=== PATIENT | female | born 1990 | race Caucasian/White ===

== ENCOUNTER 2019-07-01 03:33 | Emergency (ER) | payer MEDICAID ==
[~2019-07-01] VITALS: Ht 162.6 cm; Wt 75.9 kg
--- NOTE | 2019-07-01 04:10 | NUR ---
ASSUMED CARE OF PT. PT PLACED ON ANTENNA INSTALLER. FRIEND AT BEDSIDE. RESPIRATIONS EVEN AND UNLABORED. CURRENTL ON 4L OXYGEN VIA SM.
--- NOTE | 2019-07-01 04:56 | NUR ---
NO CHANGES IN ASSESSMENT NOTED AT THIS TIME. PT WILL MOAN TO PHYSICAL STIMULI ONLY. FRIEND REMAINS AT BEDSIDE. RESPIRATIONS REMAIN EVEN AND UNLABORED.
--- NOTE | 2019-07-01 06:04 | NUR ---
NO CHANGES IN ASSESSMENT NOTED AT THIS TIME. FRIEND REMAINS AT BEDSIDE.
--- NOTE | 2019-07-01 06:31 | NUR ---
PT DID REPOSITION SELF ON GURNEY. PT WILL NOT RESPOND TO VOICE, WILL MOAN W/ PHYSICAL STIMULATION. FRIEND AT BEDSIDE DID STATE PT HAS BEEN MAKING MORE MOVEMENTS ON OWN. RESPIRATIONS REMAIN EVEN AND UNLABORED. WILL CONTINUE TO MONITOR.
--- NOTE | 2019-07-01 06:33 | NUR ---
UNABLE TO COMPLETE MED REC AT THIS TIME PT DOES NOT RESPOND TO RN QUESTIONS.
--- NOTE | 2019-07-01 06:54 | NUR ---
BEDSIDE REPORT TO ARBEN CASTILLO.
--- NOTE | 2019-07-01 06:55 | NUR ---
patient asleep in bed, friend at bedside. friend reports doing shots at "faces" and doing shots at other bars then patient reportedly became unable to walk/talk/function. ems was called. patient is from [facility]. she is 100% on nc. rails up. on monitor
--- NOTE | 2019-07-01 07:14 | NUR ---
tried waking patient and she continues to be very challenging to wake up and doesn't open eyes without sternal rub then back to sleep. vital signs are stable. friend at bedside reports that she did "at least 10 shots but was totall fine" and was with friend all night. She reports that this her normal and "managed her drinking' but that friend is from out of town so she is unsure and doubtful at friends ability to "manage her drinking".
--- NOTE | 2019-07-01 08:45 | NUR ---
UI UX DEVELOPER: PT SP02 = 100% ON 4L NC, FI02 DECREASED TO 2LNC. PRIMARY RN, JONATHAN TORY.
--- NOTE | 2019-07-01 09:09 | NUR ---
patient continues to not wake up. he is 50on co2 monitor. told dr scott. discussed her situation at length with
--- NOTE | 2019-07-01 09:32 | NUR ---
patient woke up after lab poked her. she is aox4 and very hyper to leave. she began talkig adamently that she is ready to go. got her up to walk and she does well on feet. 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 two friends here to drive her and help her to get home and relax. alcohol education done.
[2019-07-01 09:33] VITALS: BP 138/78
[2019-07-01 09:33] LABS: BASOPHILS # (AUTO) 0.03 x10^3/uL (0-0.1); BASOPHILS % (AUTO) 0 % (0-1); EOSINOPHILS # (AUTO) 0.02 x10^3/uL (0-0.4); EOSINOPHILS % (AUTO) 0 % (1-7); LYMPHOCYTES % (AUTO) 30 % (22-44); MD NO; MEAN CORPUSCULAR HEMOGLOBIN 32.1 pg (27.0-34.8); MEAN CORPUSCULAR HGB CONC 33.6 g/dL (32.4-35.8); MEAN CORPUSCULAR VOLUME 95.3 fL (80-100); MEAN PLATELET VOLUME 6.3 fL (7.4-10.4); MONOCYTES # (AUTO) 0.34 x10^3/uL (0.2-0.8); MONOCYTES % (AUTO) 4 % (2-9); NEUTROPHILS # (AUTO) 5.07 x10^3/uL (1.8-6.8); NEUTROPHILS % (AUTO) 65 % (42-75); PLATELET COUNT 269 x10^3/uL (130-400); RED BLOOD COUNT 4.35 x10^6/uL (3.82-5.3); RED CELL DISTRIBUTION WIDTH 12.8 % (9.6-15.2)
--- NOTE | 2019-07-01 09:35 | NUR ---
when patient was stuck by lab patient woke up and was instantly very awake and conversational with her two friends at bedside. she was recalling thier last night adventures and was very pushy about leaving. she began removing her monitoring devices. I asked her to please stop and have paience. she then sat up in bed and i put her monitoring back on. she was vss and oxygen 100% on room air, she was very conversational and oriented. 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 friends confirmed all of this. she then again was adament about leaving stating that she has rights and wants to leave. I told her the doctor has ordered a head ct, and blood work and encouraged her to get these items checked out since she has been here for hours very somnolant. She stated she refused and that if she doens't get discharged she's going to just leave anyway. Told all of this information to Deidre ANN who came and assessed her, patient told her more of same. MD asked me to road test her. Patient got dressed with ease, and walked from room [address] briskly and safely and then back. I reported this to MD and patient was cleared for discharge. It took effort to get patient to stay in room while MD writing discharge. Went to room and did extensive teaching on alcohol, how it impairs our ability to care for ourselves and can lead to many life threatening situations. I reviewed how not being in control of our own bodies from over consumption can put women at risk for unwanted sexual advances. I reviewed how alcohol can hurt our bodies, and how it can lead to lowered respiratory drive and function thus leading to varios complications up to . She showed understanding. Talked to the female and male friends who are supportive at [facility] throughout her stay who agreed to drive her straight home, feed her and monitor her with NO ALCOHOL. patient and friends showed understanding.
[2019-07-01 09:47] LABS: ALANINE AMINOTRANSFERASE 24 U/L (12-78); ALBUMIN 3.9 g/dL (3.4-5.0); ANION GAP 5 mmol/L (5-15); CALCIUM 7.8 mg/dL (8.5-10.1); CHLORIDE 112 mmol/L (98-107); CREATININE 0.85 mg/dL (0.55-1.02)
[2019-07-01 09:51] LABS: ALKALINE PHOSPHATASE 56 U/L (45-117); BILIRUBIN,TOTAL 0.3 mg/dL (0.2-1.0); TOTAL PROTEIN 7.2 g/dL (6.4-8.2)
[2019-07-01 09:52] LABS: SALICYLATE LEVEL < 1.7 mg/dL (2.8-20.0)
== END 2019-07-01 10:01 | disposition home or self-care (01) ==
LOC: ED 09:42
DX: F10.120 Alcohol abuse with intoxication, uncomplicated (principal); R41.82 Altered mental status, unspecified
CPT/HCPCS: 36415; 80053; 80307; 84703; 85025; 93005; 99284

== ENCOUNTER 2019-08-29 11:46 | Emergency (ER) | payer MEDICAID ==
[~2019-08-29] VITALS: Ht 165.1 cm; Wt 75.0 kg
[2019-08-29 11:47] VITALS: BP 129/88
[2019-08-29] MEDS ORDERED: PHENAZOPYRIDINE 200 MG TABLET PO ONE (12:30)
[2019-08-29 12:39] LABS: CULTURE INDICATED? YES; HCG UR SG 1.025 (1.003-1.030); MICROSCOPIC INDICATED
[2019-08-29] MEDS ORDERED: AZITHROMYCIN 500 MG TABLET ONE (13:17)
[2019-08-29] MEDS ORDERED: PHENAZOPYRIDINE 200 MG TABLET ONE (13:17)
[2019-08-29] MEDS ORDERED: CEFTRIAXONE 250 MG ONE (13:17)
[2019-08-29] MEDS ORDERED: AZITHROMYCIN 500 MG TABLET PO ONE (13:30)
[2019-08-29] MEDS ORDERED: CEFTRIAXONE 250 MG IM ONE (13:30)
== END 2019-08-29 13:54 | disposition home or self-care (01) ==
LOC: ED 12:33
DX: N30.01 Acute cystitis with hematuria (principal); A59.03 Trichomonal cystitis and urethritis
CPT/HCPCS: 80359; 81001; 81025; 87077; 87086; 96372; 99283; J0696; G0480